=== PATIENT | male | born 1990 | race Two or more races ===

== ENCOUNTER 2018-04-01 18:33 | Emergency (ER) | payer OTHER ==
[~2018-04-01] VITALS: Ht 177.8 cm; Wt 77.1 kg
== END 2018-04-01 20:35 | disposition home or self-care (01) ==
LOC: ER 18:33
DX: S71.012A Laceration without foreign body, left hip, initial encounter (principal); W45.8XXA Other foreign body or object entering through skin, initial encounter; Y93.89 Activity, other specified; Y92.832 Beach as the place of occurrence of the external cause; Y99.8 Other external cause status

== ENCOUNTER → 2025-06-08 | Emergency (ER) | payer OTHER ==
[~2025-06-08] VITALS: Ht 180.3 cm; Wt 77.1 kg
[~2025-06-08] MED LIST: CEFTRIAXONE SODIUM 1,000 MG VIAL IM STA; CEFTRIAXONE SODIUM 1,000 MG VIAL ONE; DEXAMETHASONE SODIUM PHOSPHATE 4 MG/ML VIAL IM STA; DEXAMETHASONE SODIUM PHOSPHATE 4 MG/ML VIAL ONE; LIDOCAINE HCL 1% 10ML VIAL ONE
== END | disposition left against medical advice (07) ==
LOC: ER 00:28
DX: S01.82XA Laceration with foreign body of other part of head, initial encounter (principal); W22.8XXA Striking against or struck by other objects, initial encounter; Y93.89 Activity, other specified; Y92.89 Other specified places as the place of occurrence of the external cause; Z88.6 Allergy status to analgesic agent